=== PATIENT | male | born 1950 | race Caucasian/White ===

== ENCOUNTER → 2017-09-16 | Outpatient (CLI) | payer MEDICARE ==
[~2017-09-16] MED LIST: KEFLEX 500MG.500 MG PO; LORTAB 5/500 501 TAB PO; ZOLPIDEM 10MG T10 MG PO
[2017-09-16 08:37] LABS: BILIRUBIN, INDIRECT 0.74 mg/dL (0-0.9)
== END ==
LOC: LAB 07:22
PROVIDERS: Internal Medicine
DX: I25.10 Atherosclerotic heart disease of native coronary artery without angina pectoris (principal); I11.9 Hypertensive heart disease without heart failure; E78.5 Hyperlipidemia, unspecified; G47.33 Obstructive sleep apnea (adult) (pediatric)